=== PATIENT | male | born 1975 | race American Indian/Alaskan Native ===

== ENCOUNTER 2018-11-11 08:48 | Emergency (ER) | payer OTHER ==
[2018-11-11 08:58] VITALS: BP 151/94
[2018-11-11] MEDS ORDERED: IBUPROFEN PO ONE (09:19)
--- NOTE | 2018-11-11 09:20 | XRay Report ---
LEFT ELBOW, 3 views: History: Swelling to elbow. Slightly limited nonstandard views are presented. The bony architecture is intact without evidence of fracture or dislocation. No significant soft tissue abnormality is seen. IMPRESSION: Slightly limited exam. No abnormality is detected.
--- NOTE | 2018-11-11 09:45 | XRay Report ---
LEFT FOREARM: History: Pain after fall. A very subtle cortical defect is identified in the radial neck. This probably represents a nondisplaced fracture. The remainder of the radius and ulna are intact. The soft tissues are unremarkable. IMPRESSION: Probable radial neck fracture. Please correlate with the image and the patient.
--- NOTE | 2018-11-11 09:57 | Emergency Department Report ---
ED Extremity Problem HPI - General Chief complaint: Extremity Injury, Upper Stated complaint: LT ARM INJURY Time Seen by Provider: 11/11/18 09:04 Source: patient Mode of arrival: Ambulatory Limitations: No Limitations - History of Present Illness Initial comments: Patient is a 43-year-old male who is presenting status post a fall last night. Patient states he was out with friends. He fell onto his left upper extremity. Patient has pain at the elbow which is 8 out of 10 in severity that hurts worse when he tries to pronate supinate. Patient also has increased pain with trying to extend the elbow. It is very subtle swelling in his opinion. Patient has no evident injury at this time. Severity scale (0 -10): 10 - Related Data Previous Rx's Medication Instructions Recorded Last Taken Type Omeprazole 40 mg PO DAILY 30 Days #30 10/05/18 Unknown Rx capsule. HYDROcodone/APAP 5-325 [Glen 1 each PO Q6HR PRN #14 tablet 11/11/18 Unknown Rx 5/325] Ketorolac [Toradol] 10 mg PO Q6H PRN #12 tablet 11/11/18 Unknown Rx Allergies Allergy/AdvReac Type Severity Reaction Status Date / Time No Known Allergies Allergy Verified 11/11/18 08:56 ED Review of Systems ROS: Stated complaint: LT ARM INJURY Other details as noted in HPI Comment: All other systems reviewed and negative ED Past Medical Hx - Past Medical History Previous Medical History?: No - Surgical History Past Surgical History?: No - Social History Smoking Status: Current Every Day Smoker Substance Use Type: None - Medications Home Medications: Home Medications Medication Instructions Recorded Confirmed Last Taken Type Omeprazole 40 mg PO DAILY 30 Days #30 10/05/18 Unknown Rx capsule. HYDROcodone/APAP 5-325 [Glen 1 each PO Q6HR PRN #14 tablet 11/11/18 Unknown Rx 5/325] Ketorolac [Toradol] 10 mg PO Q6H PRN #12 tablet 11/11/18 Unknown Rx ED Physical Exam - General Limitations: No Limitations General appearance: alert, in no apparent distress - Head Head exam: Present: atraumatic, normocephalic - Eye Eye exam: Present: normal appearance, PERRL, EOMI - ENT ENT exam: Present: mucous membranes moist - Respiratory Respiratory exam: Absent: respiratory distress - Expanded Upper Extremity Exam Left Elbow exam: Present: normal inspection, tenderness, swelling, pain w/ pronation/supination. Absent: full ROM, abrasion, laceration, ecchymosis, deformity, crepidus, dislocation, erythema ED Course Vital Signs 11/11/18 08:56 Temperature 98.1 F Pulse Rate 96 H Respiratory 16 Rate Blood Pressure 151/94 O2 Sat by Pulse 98 Oximetry ED Medical Decision Making - Radiology Data X-ray of the elbow showed no acute process however x-ray of the left forearm does show a subtle cortical defect at the radial head consistent with a small fracture - Medical Decision Making Patient placed in a sling L and patient will be given pain medications for fracture care. Patient be referred to orthopedics. Patient discharged home. Critical care attestation.: If time is entered above; I have spent that time in minutes in the direct care of this critically ill patient, excluding procedure time. ED Disposition Clinical Impression: Radial head fracture Qualifiers: Encounter type: initial encounter Fracture type: closed Fracture alignment: nondisplaced Laterality: left Qualified Code(s): S52.125A - Nondisplaced fracture of head of left radius, initial encounter for closed fracture Disposition: -01 TO HOME OR SELFCARE Is pt being admited?: No Does the pt Need Aspirin: No Condition: Stable Instructions: Elbow Fracture in Adults (ED) Referrals: LUCITA DIALLO MD [Staff Physician] - 3-5 Days Time of Disposition: 09:57
== END 2018-11-11 10:09 | disposition home or self-care (01) ==
LOC: ED 08:48
DX: S52.122A Displaced fracture of head of left radius, initial encounter for closed fracture (principal); F17.200 Nicotine dependence, unspecified, uncomplicated; Z79.899 Other long term (current) drug therapy; W18.30XA Fall on same level, unspecified, initial encounter; Y93.89 Activity, other specified; Y92.89 Other specified places as the place of occurrence of the external cause; Y99.8 Other external cause status
CPT/HCPCS: 99284